=== PATIENT | female | born 2000 | race African-American/Black ===

== ENCOUNTER 2023-07-30 15:36 | Outpatient (CLI) | payer OTHER, SELFPAY ==
--- NOTE | ~2023-07-30 | US_ITS ---
EXAMINATION: US OB follow up DATE: 07/30/2023 16:41 INDICATION: Age-indeterminate with amenorrhea and unknown last menstrual period presenting with irregular vaginal bleeding. TECHNIQUE: Real-time ultrasound of the pelvis was performed. The interpreting radiologist was not pre sent for the study. COMPARISON: None. FINDINGS: There is a single living fetus in the cerebral presentation. The placenta is anterior and low-lying with caudal margin 2.5 cm from the region of the internal cervical os which is not clearly visualized . There is a hypoechoic region lung the deep margin of the caudal placenta which extends to the level of the internal cervical os which is suspicious for subchorionic hematoma which measures 6.2 x 2.0 x 4.2 cm. On a few of the images the region of hypoechogenicity extends deeper towards the expected re gion of the cervix which is not clearly visualized which could potentially represent either extension of clot into the endocervical canal, tangential imaging of a more lateral extension of the subchorio gretel hematoma lateral to the midline or shadowing from fraction artifact. heart rate is 147 beat s per minute (bpm). The amniotic fluid volume is subjectively normal with normal deepest vertical poc ket measurement of 4.1 cm. The following biometric data were obtained: BPD: 4.0 cm -> 18 weeks 2 days Head circumference: 14.6 cm -> 17 weeks 6 days Abdominal circumference: 11.8 cm -> 17 weeks 4 days Femur length: 2.3 cm -> 16 weeks 6 days These measurements are concordant. Head circumference to abdominal circumference ratio: 1.24 (normal range 1.08-1.28). Although not performed as a dedicated anatomic survey, additional provided images demonstrates male genitalia, normal bladder with 3 vessel cord, normal nasal bone, upper lip and cord insertion. Estimated weight: 189 g (+/-) 28 g or 7 oz. (+/-) 1 oz. IMPRESSION: 1. Single living fetus in vertex presentation with heart rate of 147 bpm. 2. Gestational age by ultrasound of 17 weeks 5 day(s) +/- 1 week(s) 2 day(s) with ultrasound estimate d date of delivery (ALTAGRACIA) of 01/02/2024. Please correlate with clinical information or earlier ultraso unds for most accurate ALTAGRACIA. 3. 6.2 x 2.0 x 4.2 cm subchorionic hematoma along the caudal margin of the low-lying placenta which a ppears to extend to the region of the internal cervical os, potentially with extension into the endoc ervical canal however visualization of the region of the cervix is suboptimal on the provided images. Dr. Gonzales discussed these findings with Dr. Connolly at 9:00 AM. Reviewed, dictated and finalized at location A. IMPRESSION: 1. Single living fetus in vertex presentation with heart rate of 147 bpm. 2. Gestational age by ultrasound of 17 weeks 5 day(s) +/- 1 week(s) 2 day(s) wi th ultrasound estimated date of delivery (ALTAGRACIA) of 01/02/2024. Please correlate with clinical information or earlier ultrasounds for most accurate ALTAGRACIA. 3. 6.2 x 2.0 x 4.2 cm subchorionic hematoma along the caudal margin of the low- lying placenta which appears to extend to the region of the internal cervical o s, potentially with extension into the endocervical canal however visualization of the region of the cervix is suboptimal on the provided images. Dr. Gonzales discussed these findings with Dr. Connolly at 9:00 AM.
== END 2023-07-30 15:37 | disposition home or self-care (01) ==
LOC: ANHIMG 15:37
PROVIDERS: PCP Student in an Organized Health Care Education/Training Program; Visit Provider Student in an Organized Health Care Education/Training Program
DX: Z34.92 Encounter for supervision of normal pregnancy, unspecified, second trimester (principal); Z3A.17 17 weeks gestation of pregnancy
CPT/HCPCS: 76816

== ENCOUNTER 2023-08-15 12:41 | Outpatient (CLI) | payer OTHER, SELFPAY ==
--- NOTE | ~2023-08-15 | US_ITS ---
OB follow-up ULTRASOUND 08/15/2023 13:00 CDT Ordering provider: Onofre Connolly MD History: . subchorionic hematoma . Comparison: July 30, 2023 Technique: OB follow-up ULTRASOUND (Doppler ultrasound interrogation techniques used as needed for this exam.) Findings: : Single intrauterine fetus with heart rate measured at 19 2006 ( bpm which is within normal limits. ED D is January 03, 2024 Presentation: Vertex. Longitudinal lie. Placenta: Anterior. No previa. Previously seen subchorionic hemorrhage is decreased. Amniotic fluid index: 11.1 cm 5th percentile 9.3 cm. 95th percentile areas 21.2 cm.The largest pocket measures 3 cm. -- BIOMETRICS: BPD: 48.1 mm = 20 weeks 4 days HC: 171.1 mm = 19 weeks 5 days FL: 29.9 mm = 19 weeks 2 days AC: 144.4 mm = 19 weeks 5 days HC/AC: 1.18 FL/BPD: 62.16 FL/AC: 20.7-1 Extrapolated weight is 300.14 gm. 23.2%. IMPRESSION: No definite abnormality seen. The previously seen subchorionic hematoma is decreased. Reviewed, dictated and finalized at location A. IMPRESSION: No definite abnormality seen. The previously seen subchorionic hematoma is dec reased.
[2023-08-15 14:16] LABS: Basophils Percent Auto 0.3 % (0.2-1.2); Eosinophils Absolute Auto 0.2 K/mm3 (0-0.3); Eosinophils Percent Auto 1.6 % (0-4.4); Hematocrit 37.2 % (37.0-47.0); Hemoglobin 12.4 g/dL (12.0-15.0); Immature Granulocyte Absolute 0.02 K/mm3 (0.00-0.031); Immature Granulocyte Percent A 0.2 % (0-0.5); Immature Platelet Fraction Pct 14.6 % (0.9-11.2); Lymphocytes Absolute Auto 2.02 K/mm3 (0.9-3.2); Lymphocytes Percent Auto 19.4 % (18.3-44.2); Mean Corpuscular HGB Conc 33.3 g/dl (32-36); Mean Corpuscular Hemoglobin 29.4 pg (26-34); Mean Corpuscular Volume 88.2 fl (80-100); Mean Platelet Volume 13.2 fl (7.4-10.4); Monocytes Absolute Auto 0.7 K/mm3 (0.1-0.6); Monocytes Percent Auto 6.4 % (2.6-8.5); Neutrophils Absolute Auto 7.5 K/mm3 (1.3-6.7); Neutrophils Percent Auto 72.1 % (45.5-73.1); Platelet Count Result 121 k/mm3 (150-375); Red Blood Count 4.22 M/mm3 (4.2-5.4); Red Cell Distribution Width 13.9 % (11.5-14.5); White Blood Count 10.4 K/mm3 (4.5-10.0)
[2023-08-15 15:15] LABS: HIV 1/2 Ab P24 Ag Result Negative (Negative)
[2023-08-15 15:39] LABS: Hepatitis B Surface Antigen Negative (Negative)
[2023-08-15 18:44] LABS: Rubella IgG Antibody > 110.0 IU/ML
== END 2023-08-15 12:42 | disposition home or self-care (01) ==
PROVIDERS: PCP Student in an Organized Health Care Education/Training Program; Visit Provider Student in an Organized Health Care Education/Training Program
DX: N91.2 Amenorrhea, unspecified (principal); O41.8X90 Other specified disorders of amniotic fluid and membranes, unspecified trimester, not applicable or unspecified; O46.8X9 Other antepartum hemorrhage, unspecified trimester; Z3A.00 Weeks of gestation of pregnancy not specified
CPT/HCPCS: 36415; 76816; 84702; 85025; 85055; 85660; 86644; 86703; 86747; 86762; 86787; 86850; 87340; G0432

== ENCOUNTER 2023-10-10 14:34 | Observation (INO) | payer OTHER, SELFPAY ==
--- NOTE | 2023-10-10 14:45 | OBADM ---
This patient, Leslie Ricks, admitted to the OB room OB Post 116 for observation. Patient/family oriented to hospital policies and general routines including ID bracelet, bed and alarms, visiting hours, pain management, procedures, bathroom and other care routines, personal items, smoking policy, room service/diet, and visiting hours. Patient/Family are encouraged to report perceived risks to care and to ask questions if they do not understand what they are told or what they should do.
[2023-10-10 15:00] VITALS: BP 120/69; PULSE 95
[2023-10-10 15:15] VITALS: BP 111/70; PULSE 84
[2023-10-10 15:30] VITALS: BP 113/70; PULSE 89
--- NOTE | 2023-10-10 15:32 | PC.NURSE ---
Dr Livingston notified of adm c/o of spotting after intercourse yesterday, orders for SVE and if closed my dc home.
--- NOTE | 2023-11-06 12:52 | PM.OBTRLD ---
OB - Triage/Final Diagnosis Visit Information Comments/Additional reasons for admission: I have assessed the risk for this patient, Leslie Ricks, and determined that she would benefit from observation care. Final Diagnosis (1) Spotting complicating , third trimester: Code(s): O26.853 - Spotting complicating , third trimester Status: Acute
== END 2023-10-10 15:41 | disposition home or self-care (01) ==
PROVIDERS: Admitting Provider Obstetrics & Gynecology; Visit Provider Obstetrics & Gynecology
DX: O26.852 Spotting complicating pregnancy, second trimester (principal); Z3A.27 27 weeks gestation of pregnancy
CPT/HCPCS: G0378; G0379

== ENCOUNTER 2023-10-31 15:11 | Outpatient (CLI) | payer OTHER, SELFPAY ==
[2023-10-31 16:43] LABS: Basophils Percent Auto 0.3 % (0.2-1.2); Eosinophils Absolute Auto 0.2 K/mm3 (0-0.3); Eosinophils Percent Auto 1.8 % (0-4.4); Hematocrit 34.9 % (37.0-47.0); Hemoglobin 11.9 g/dL (12.0-15.0); Immature Granulocyte Absolute 0.04 K/mm3 (0.00-0.031); Immature Granulocyte Percent A 0.3 % (0-0.5); Immature Platelet Fraction Pct 17.6 % (0.9-11.2); Lymphocytes Absolute Auto 2.06 K/mm3 (0.9-3.2); Lymphocytes Percent Auto 17.7 % (18.3-44.2); Mean Corpuscular HGB Conc 34.1 g/dl (32-36); Mean Corpuscular Hemoglobin 29.5 pg (26-34); Mean Corpuscular Volume 86.6 fl (80-100); Mean Platelet Volume 13.6 fl (7.4-10.4); Monocytes Absolute Auto 0.7 K/mm3 (0.1-0.6); Monocytes Percent Auto 5.7 % (2.6-8.5); Neutrophils Absolute Auto 8.6 K/mm3 (1.3-6.7); Neutrophils Percent Auto 74.2 % (45.5-73.1); Platelet Count Result 115 k/mm3 (150-375); Red Blood Count 4.03 M/mm3 (4.2-5.4); Red Cell Distribution Width 13.1 % (11.5-14.5); White Blood Count 11.6 K/mm3 (4.5-10.0)
[2023-10-31 16:50] LABS: Glucose 1 Hour PP 50gm Dose 138 mg/dL
[2023-10-31 16:59] LABS: Rapid Plasma Reagin Non-Reactive (NonReactive)
[2023-10-31 17:31] LABS: HIV 1/2 Ab P24 Ag Result Negative (Negative)
== END 2023-10-31 15:12 | disposition home or self-care (01) ==
PROVIDERS: Visit Provider Obstetrics & Gynecology
DX: Z34.90 Encounter for supervision of normal pregnancy, unspecified, unspecified trimester (principal); Z3A.00 Weeks of gestation of pregnancy not specified
CPT/HCPCS: 36415; 82947; 85025; 85055; 86592; 86703; G0432

== ENCOUNTER 2023-11-06 16:16 | Outpatient (RCR) | payer OTHER, SELFPAY ==
--- NOTE | ~2023-11-06 | US_ITS ---
EXAMINATION: US OB BPP wo non-stress DATE: 11/06/2023 17:35 INDICATION: Intrauterine growth retardation during third trimester . TECHNIQUE: Real-time pelvic ultrasound was performed. The interpreting radiologist was not present fo r the study. COMPARISON: 10/29/23 FINDINGS: There is a single living fetus in vertex presentation. The placenta is anterior. heart rate is 132 beats per minute (bpm). Amniotic fluid volume is subjectively normal with normal deepest vertica l pocket measurement of 5.3 cm. Biophysical profile performed by the technologist: breathing (30 sec sustained breathing in 30 minutes): 2 out of 2 movement (3 gross body movements in 30 minutes): 2 out of 2 tone (one episode of muqfbbm-dxawekscy-kjhnnjk limb movement): 2 out of 2 Amniotic fluid pocket (2 cm): 2 out of 2 Total score: 8 out of 8 IMPRESSION: 1. Single living fetus in vertex presentation with heart rate of 132 bpm. 2. Biophysical profile 8 out of 8. Reviewed, dictated and finalized at location B.
[2023-11-06 17:49] VITALS: BP 118/85; PULSE 92
== END 2024-02-04 23:59 | disposition home or self-care (01) ==
LOC: ANHOBOP 16:16
PROVIDERS: Visit Provider Obstetrics & Gynecology
DX: O36.5930 Maternal care for other known or suspected poor fetal growth, third trimester, not applicable or unspecified (principal); Z3A.31 31 weeks gestation of pregnancy
CPT/HCPCS: 59025; 76819

== ENCOUNTER 2023-11-12 22:43 | Observation (INO) | payer OTHER, SELFPAY ==
[2023-11-12 23:30] VITALS: BP 135/93; PULSE 81
[2023-11-12 23:36] LABS: Add Urine Microscopic? NO; Appearance Urine Clear (Clear); Bilirubin Urine Negative (Negative); Blood Urine Negative (Negative); Color Urine Yellow (Yellow); Glucose Urine UA Negative (Negative); Ketones Urine Negative (Negative); Leukocyte Esterase Ur Negative LEU/UL (Negative); Nitrate Urine Negative (Negative); Protein Urine Negative (Negative); Specific Grav Ur 1.015 (1.001-1.035)
[2023-11-12 23:45] VITALS: BP 128/93; PULSE 66
[2023-11-13] VITALS: BP 126/94; PULSE 71
[2023-11-13 00:05] VITALS: BMI 24.0
--- NOTE | 2023-11-13 00:05 | OBADM ---
This patient, Leslie Ricks, admitted to the OB room OB Post 117 for observation. Patient/family oriented to hospital policies and general routines including ID bracelet, bed and alarms, visiting hours, pain management, procedures, bathroom and other care routines, personal items, smoking policy, room service/diet, and visiting hours. Patient/Family are encouraged to report perceived risks to care and to ask questions if they do not understand what they are told or what they should do.
--- NOTE | 2023-11-13 00:13 | PC.NURSE ---
Talked to Dr. Connolly at this time. Reported patient kim and only drinking one bottle of water today. Patient has had 2 cups of water today since she was here and is not feeling anything anymore. Reported on maternal and status at this time. orders recieved to DC the patient at this time.
--- NOTE | 2023-11-13 00:15 | PC.NURSE ---
patient came in tonight via EMS from [place] in [facility]. Patient c/o cramping and tightening of her belly. Patient states that she has only had one bottle of water tonight and has been feeling baby move like crazy. Patient states no vaginal bleeding or leaking of fluid.
--- NOTE | 2023-11-17 08:56 | P.PNOB_ITS ---
OB - Triage/Final Diagnosis Visit Information Date of evaluation: 11/13/23 Reason for evaluation: threatened labor Comments/Additional reasons for admission: I have assessed the risk for this patient, Leslie Ricks, and determined that she would benefit from observation care. Evaluation Laboratory results: Laboratory Tests 11/12/23 23:31 Urine Color Yellow Urine Appearance Clear Urine pH 7.0 Ur Specific [place] 1.015 Urine Protein Negative Urine Glucose (UA) Negative Urine Ketones Negative Ur Blood (Man) Negative Urine Nitrate Negative Urine Bilirubin Negative Urine Urobilinogen 1.0 Leukocyte Esterase Rfl Negative
== END 2023-11-13 01:41 | disposition home or self-care (01) ==
PROVIDERS: Obstetrics & Gynecology; Admitting Provider Student in an Organized Health Care Education/Training Program; Visit Provider Student in an Organized Health Care Education/Training Program
DX: O47.9 False labor, unspecified (principal); Z3A.00 Weeks of gestation of pregnancy not specified
CPT/HCPCS: 59025; 81003; G0378; G0379

== ENCOUNTER 2024-02-20 15:02 | Emergency (ER) | payer OTHER, SELFPAY ==
--- NOTE | 2024-02-20 15:12 | PC.NURSE ---
Pt. called for triage at 1512. No reply.
== END 2024-02-20 17:11 | disposition left against medical advice (07) ==
DX: Z53.21 Procedure and treatment not carried out due to patient leaving prior to being seen by health care provider (principal)
CPT/HCPCS: 99199

== ENCOUNTER 2024-07-06 11:18 | Outpatient (CLI) | payer OTHER, SELFPAY ==
--- OUTSIDE RECORDS SUMMARY | 2024-07-06 11:22 | XMS_ITS | Referral Summary ---
Author Organization [facility] Address [address] [place] [address] Care Team Providers Care Vending Attendant Name Role Phone No, Physician Primary Care Provider [phone] Unknown, Notinfile Unavailable Unavailable Allergies Active Allergy Reactions Criticality Noted Date Comments Egg Unknown 11/27/2023 Eggshell Membrane Swelling Medium 07/15/2023 Other Hives Medium 07/15/2023 Peaches [place] Flavor Itching,Urticaria Medium 10/06/2021 Medications ferrous sulfate (IRON ORAL) Take by mouth Active PNV no.95/ferrous fum/folic ac ( ORAL) Take by mouth Active acetaminophen 500 mg capsuleIndications: Pain Take 2 capsules (1,000 mg total) by mouth every 6 (six) hours 30 tablet 4 Active ibuprofen (ADVIL,MOTRIN) 600 mg tabletIndications:P ain Take 1 tablet (600 mg total) by mouth every 6 (six) hours 60 tablet 4 Active NIFEdipine (PROCARDIA XL/ADALAT CC) 30 mg 24 hr tablet Take 1 tablet (30 mg total) by mouth daily 30 tablet 11 4 12/15/19 25 Active ondansetron ODT (ZOFRAN-ODT) 4 mg disintegrating tabletIndications:N ausea and Vomiting Take 1 tablet (4 mg total) by mouth every 6 (six) hours as needed for nausea or vomiting 20 tablet 4 Active polyethylene glycol (MIRALAX) 17 gram/dose bulk powderIndications:c onstipation Take 17 g by mouth daily 510 g 4 Active Active Problems Problem Noted Date Diagnosed Date care following vaginal delivery 12/12 Overview (12/15/2023): # ID: Afebrile. No signs/symptoms of infection. #H/o CT: CT pos on 3T labs.S/p tx 11/27. For BILLY ~12/25 # Heme: QBL 50 mL. Hemodynamically stable. #gTCP: platelet 108 pre-delivery # CV/Pulm: #Pre-eclampsia with severe features - s/p magnesium sulfate running 2g/hr for a total of 24 hours . On nifed 30mg XL (started 12/12 PM). Some mild ranges 12/14 AM, will monitor this afternoon to see if pt needs to increase nifed upon discharge. CBC/CMP WNL, UPC 0.2. Consented/ordered for home BP monitoring, for enrollment. # GI/: Tolerating PO. Voiding spontaneously. # Pain: Controlled with above regimen. # MOC: Declines s/p counseling. Readdressed 12/14, still declining. # MOF: . Urine drug screen not indicated. Patient informed of results: N/A. # Post DVT prophylaxis: The patient has the following MAJOR risk factors none and the following MINOR risk factors none. SCDs ordered for VTE prophylaxis. # Disposition: Follow up task sent to [facility] scheduling pool. Continue routine care. Encounter for induction of labor 12/12/2023 Overview (12/12/2023): Leslie Ricks is a 23 y.o. female at 37w0d who is dated by 2 trimester ultrasound and is being admitted for an induction of labor secondary to gHTN . Admit to L&D: Labs: CBC and T&S pending. Induction of labor with Misoprostol . FWB: Continuous monitoring. Reactive NST. ID: 3rd trimester HIV (>28 wga) negative on 11/26. GBS negative on 11/26 . RPR on admission: pending. History of genital HSV or HSV 1/2 seropositivity: No. Membrane Status: intact. Indications for UDS: none. Verbal consent obtained for UDS: Not indicated. MOF: Plans to breastfeed. Urine drug screen not indicated. Patient informed of results: N/A. MOC: Decline s/p counseling, plans for condom use . Pain management: Desires epidural. Post DVT prophylaxis: The patient has the following MAJOR risk factors none and the following MINOR risk factors none. SCDs will be ordered for VTE prophylaxis . c/b: #FGR: elevated UAD, declined amnio, genetic testing. Notify peds for delivery. #gHTN: baseline CBC/CMP WNL, UPC 0.294 on 12/03. For repeat labs on admission, ordered. #H/o CT: CT pos/GC neg on 3T labs, treatment sent 11/27. For BILLY ~12/25 #gTCP: Plt 108 on 12/03 (>200 in 2020), will f/u admission CBC #Abnormal pap: ASCUS/hrHPV(+) 03/2023, for repeat in 03/2024 #LPNC ASCUS with positive high risk HPV cervical 11/17 Overview (11/26/2023): Pap: 04/16/23: ASCUS; HPV positive Repeat per in one year per ASCCP guidelines Resolved Problems Problem Noted Date Diagnosed Date Resolved Date Gestational hypertension, third trimester 12/04/2023 12/29/2023 Overview (12/05/2023): Gestational hypertension S/p counseling Plan: Weekly appts with weekly labs 2x/weekly testing per FGR problem Delivery at 37 per FGR elevated 1 hour 11/26/2023 12/29/2023 Overview (11/27/2023): 1 hour gtt 10/31/23: 138, elevated per OSH cut offs Discussed that this is not elevated per cut offs we use at [facility], no need for 3 hour Supervision of high-risk pre gnancy, third trimester 11/18/2023 12/29/2023 Overview (12/03/2023): [x] Full M Care; [x] Blue Team Referring Provider: Self Referral Primary OB: Dorie Sarabia [phone] [] or Medicare Insurance [x] Dating Criteria: US 07/30/23 with ALTAGRACIA 01/02/24 [x] Labs: Rh [B+], Ab [negative], Rubella [immune], HIV [non-reactive], HepBSAg [non-reactive], RPR [not done, ordered], Hep C [Neg/Neg], Varicella [positive], GC/CT [declined] [x] Aneuploidy: declined NIPT [x] Carrier Screening: sickle cell negative [x] CBC/Hgb: 12.4/37.2/plt 121 [] UCx: not done, ordered [x] Pap: 04/16/23: ASCUS; HPV positive [] Flu Shot (Oct-Jan): declined [] COVID : declined 2nd Tri Labs: [x] Anatomy ultrasound: complete and wnl 09/23 [x] CBC/1hr gtt at 24-28wks: 10/31/23: 11.9/34.9/plt 115, GTT 138, HIV [non- reactive], RPR [non-reactive] [x] Tdap (27-36wks): 11/27/23 AM [] Rhogam at 28 wks (if Rh neg): 3rd Tri Labs: [x] CBC/HIV/RPR/T&S: 10.5/32.8/120, HIV: Neg, RPR: NR [x] GBS: collected 11/26, negative [x] GC/CT (if indicated): GC: neg, CT positive and treatment sent on 11/28/23- jlb [x] testing: Twice weekly, ordered [x] RSV , declined Counseling [x] MOD: Antipate , IOL scheduled for 12/11 at 5:30am-letter sent to pt [x] Place of delivery: [facility] [] Last clinic visit SVE: [] IOL start agent: [] Epidural: [] Blood Products [] Consents signed: [] Stop ASA [] MOC: [] Method of feeding: [] Emery Wheel Molder: [] PP Depression Discussed: Late care affecting in third trimester 11/18/2023 12/29/2023 growth restriction antepartum 11/18/2023 12/29/2023 Overview (12/03/2023): Diagnosed at 30w4d by AC 5%ile, EFW 38% 11/27/23: EFW 4%ile, AC 6%ile, elevated UAD, BPP 09/24 Previously counseled Plan: [x] Offered amniocentesis for MANAGER FARM (and CMV if gestational age <32 weeks at diagnosis) offered, + CMV IgG on NOB labs, declined amnio [x] Twice weekly testing with UA dopplers/BPP alternating with NST (usually Friday/ or Friday/Friday schedule), ordered [] Growth EFW every 3 weeks with MFM visit, none left prior to delivery [] Plan for delivery at 37 weeks or if testing dictates sooner, scheduled for IOL 12/11 Thrombocytopenia affecting 11/18/2023 12/29/2023 Overview (12/03/2023): Last platelets: 115 10/31/23 Lab Results Component Value Date WBC 10.3 (H) 11/27/2023 HGB 10.5 (L) 11/27/2023 HCT 32.8 (L) 11/27/2023 MCV 85.0 11/27/2023 LABPLAT 120 (L) 11/27/2023 Immunizations Immunization Administration Dates Next Due Tdap 11/27/2023 Social History Tobacco Use Types Packs/Day Years Used Date Smoking Tobacco: Never Passive Smoke Exposure: Current Smokeless Tobacco: Never Tobacco Cessation:Counseling Given: No Personal Safety Answer Date Recorded Have you ever been in or are you currently in a harmful physical or emotional relationship or is someone making you feel afraid or unsafe? 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 Gender Identity Not on file Sexual Orientation Not on file Last Filed Vital Signs Vital Sign Reading Time Taken Comments Blood Pressure 134/81 12/15/2023 11:13 AM CDT Pulse 87 12/15/2023 7:17 AM CDT Temperature 36.8 C (98.2 F) 12/15/2023 7:17 AM CDT Respiratory Rate 18 12/15/2023 7:17 AM CDT Oxygen Saturation 97% 12/15/2023 7:17 AM CDT Inhaled Oxygen Concentration - - Weight 57.2 kg (126 lb) 12/12/2023 7:34 AM CDT Height 152.4 cm (5') 12/12/2023 7:34 AM CDT Body Mass Index 24.61 12/12/2023 7:34 AM CDT Plan of Treatment Not on file Procedures Procedure Name Priority Date/Time Associated Diagnosis Comments HEPATITIS C ANTIBODY Routine 11/27/2023 3:55 PM CDT Supervision of high-risk , unspecified trimester from Last 3 Months or Most Recently Relevant to Health Maintenance Results * Hepatitis C antibody Blood (11/27/2023 3:55 PM CDT) Hep C Ab Nonreactive Nonreactive Comment:Antibodies to HCV no t detected. Does NOT exclude the possibility of recent exposure to HCV. Current interpretive data was last revised on 21 Blood 11/27/2023 3:55 PM CDT 11/27/2023 5:13 PM CDT us Juany Andrews MD LAB MICROBIOLOGY - GENERAL ORDERABLES Final Result [facility] [address] Department of Laboratories [place], [place] [id number] from Last 3 Months or Most Recently Relevant to Health Maintenance Insurance [facility] [employer] [facility] Advance Directives For more information, please contact: [phone] * Full Code (Latest Code Status on File) Date Activated Date Inactivated Comments 12/13/2023 6:27 AM 12/15/2023 5:21 PM * Full Code Date Activated Date Inactivated Comments 12/12/2023 6:45 AM 12/13/2023 6:27 AM Full CPR in case of cardiopulmonary arrest Care Teams Vending Attendant Relationship Specialty Start Date End Date No, Physician PCP - General 11/12/23 Unknown, Notinfile 11/12/23
--- OUTSIDE RECORDS SUMMARY | 2024-07-06 11:22 | XMS_ITS | Clinical Summary ---
Author Organization [facility] Address [address] [place] [address] Care Team Providers Care Correspondence Specialist Name Role Phone No, Physician Primary Care Provider [phone] Unknown, Notinfile Unavailable Unavailable Allergies Active Allergy Reactions Criticality Noted Date Comments Egg Unknown 11/27/2023 Eggshell Membrane Swelling Medium 07/15/2023 Other Hives Medium 07/15/2023 Peaches [place] Flavor Itching,Urticaria Medium 10/06/2021 Medications ferrous sulfate [...] # Disposition: Follow up task sent to [facility] scheduling pool. Continue routine care. Encounter for [...] elevated per cut offs we use at [facility], no need for 3 hour Supervision of high-risk pre gnancy, third trimester 11/18/2023 12/29/2023 Overview (12/03/2023): [x] Full M Care; [x] Blue Team Referring Provider: Self Referral Primary OB: Dorie Sarabia [phone] [] or Medicare Insurance [x] Dating Criteria: [...] [] MOC: [] Method of feeding: [] Fish Bait Processing Supervisor: [] PP Depression Discussed: Late care affecting in third trimester 11/18/2023 12/29/2023 growth restriction antepartum 11/18/2023 12/29/2023 Overview (12/03/2023): Diagnosed at 30w4d by AC 5%ile, EFW 38% 11/27/23: EFW 4%ile, AC 6%ile, elevated UAD, BPP 09/24 Previously counseled Plan: [x] Offered amniocentesis for JUNIOR ANALYST (and CMV if gestational age <32 weeks [...] on file 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 Gender Identity Not on file Sexual Orientation Not on file Obstetrics History Para Term AB IAB SAB Ectopic Multiple Livin g Live Births 2 1 1 0 1 0 1 0 0 1 1 Date Outcome GA Total Labor Labor/2nd/3rd Weight Sex Type Anes PTL Elvia A1 A5 Name Clin SAB 2023 Term 37w 1d 0h 32m 0h 25m/0h 07m 2.18 kg (4 lb 12.9 oz) M Vagina l Epidur al N Livin g 7 9 Damion n Dilan Christian rsad, Carmen Reagan MD Complications: Sally karolina Hypertension,Pre eclampsia Delivery Location:[facility] ([facility]) Last Filed Vital Signs Vital Sign Reading [...] 12/12/2023 7:34 AM CDT Plan of Treatment Health Maintenance Due Date Last Done Comments Cervical Cancer Screening 2002 Depression Screening 2002 Meningococcal B Vaccine (2 of 2 - Bexsero SCDM 2-dose series) 12/11/2018 06/11/2018 Regular Well Visit/Exam 18-64 2020 Influenza Vaccine (#1) 2023 01/08/2017, 2015 DTaP/Tdap/Td Vaccine (7 - Td or Tdap) 11/26/2033 11/27/2023, 07/05/2014, 11/09/2007, Additional history exists Pneumococcal vaccine <65 Aged Out 004, 09/16/2003, 2002 No longer eligible based on patient's age to complete this topic Varicella Vaccines Completed 11/09/2007, 11/04/2003 Hepatitis B Screening Completed 04/27/2014 , 09/16/2003, 2002 HPV Vaccines Completed 03/20/2016, 06/09/2014 Hepatitis C Screening Completed 11/27/2023 Procedures Procedure Name Priority Date/Time Associated Diagnosis [...] LAB MICROBIOLOGY - GENERAL ORDERABLES Final Result [facility] Department [place] [address] from Last 3 Months or Most Recently Relevant to Health Maintenance Insurance [facility] Advance Directives For more information, please contact: [phone] * Full Code (Latest Code Status on File) Date Activated Date Inactivated Comments 12/13/2023 6:27 AM 12/15/2023 5:21 PM * Full Code Date Activated Date Inactivated Comments 12/12/2023 6:45 AM 12/13/2023 6:27 AM Full CPR i n case of cardiopulmonary arrest Care Teams Correspondence Specialist Relationship Specialty Start Date End Date No, Physician PCP - General 11/12/23 Unknown, Notinfile 11/12/23
--- OUTSIDE RECORDS SUMMARY | 2024-07-06 11:22 | XMS_ITS | Clinical Summary ---
Author Organization [facility] Address [address] [place] [address] Care Team Providers Care Credit Card Clerk Name Role Phone Unavailable Primary Care Provider Unavailabl e Source Comments [facility]non-owned Affiliates and Associated Physician Practices is amultiple site organization consisting of ambulatory clinics and hospital sitesin [place], [place], [place] and [place]. This disclosure is being madepursuant to the Care Everywhere program and may not contain all information available regarding this patient. Last updated 17.[facility] Allergies Active Allergy Reactions Criticality Noted Date Comments Charles Flavor Urticaria,Itching Medium 10/06/2021 Medications * Be aware that medications may not be up to date on this document. Alwaysverify current medications with the patient. Loperamide HCl (IMODIUM A-D PO) Take by mouth. Active ibuprofen (MOTRIN) 400 MG tablet Take 1 (one) tablet by mouth every 6 hours as needed for Pain 30 tablet 02/27/2021 Active Social History Tobacco Use Types Packs/Day Years Used Date Smoking Tobacco: Never Smokeless Tobacco: Never Alcohol Use Standard Drinks/Week Comments Never 0 (1 standard drink = 0.6 oz pur e alcohol) AUDIT-C Answer Date Recorded Q1: How often do you have a drink containing alcohol? Never 10/05/2021 Q2: How many drinks containi ng alcohol do you have on a typical day when you are drinking? Patient does not drink Q3: How often do you have si x or more drinks on one occasion? 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 Height - - Body Mass Index - - Plan of Treatment Health Maintenance Due Date Last Done Comments PAP SMEAR 2002 HIV SCREENING 2017 HPV VACCINE (1 - 3-dose series) 2017 CHLAMYDIA/GONORRHEA SCREENING 2018 MENINGOCOCCAL (Group B) VACCINE SHARED DECISION-MAKING (1 of 2 - Standard) 2018 HEPATITIS C SCREENING 03/29/2020 DTAP/TDAP/TD VACCINES (1 - Tdap) 2021 HEPATITIS B VACCINE (1 of 3 - 19+ 3-dose series) 2021 COVID-19 VACCINE (1 - 2023-2 5 season) 2023 DEPRESSION SCREENING 02/18/2024 INFLUENZA VACCINE (Season Ended) 2024 01/08/2017, 02/07/2016 ZOSTER VACCINE (1 of 2) 2052 HIB VACCINE Aged Out No longer eligi ble based on patient's age to complete this topic MENINGOCOCCAL GROUPS A/C/Y/W VACCINE Aged Out No longer eligible b ased on patient's age to complete this topic PNEUMOCOCCAL VACCINE Aged Out No long er eligible based on patient's age to complete this topic Insurance MEDICAID [employer] [facility] [id number]
--- OUTSIDE RECORDS SUMMARY | 2024-07-06 11:22 | XMS_ITS | Clinical Summary ---
Author Organization [facility] Address [address] [place] [id number] Care Team Providers Care Admitted Attorneys Name Role Phone Md, Generic Conversion MD Unavailable Unavai lable None, Provider MD Primary Care Provider Unavaila ble Allergies No known active allergies Social History Tobacco Use Types Packs/Day Years Used Date Smoking Tobacco: Former Cigarettes Smokeless Tobacco: Never Alcohol Use Standard Drinks/Week Comments Never 0 (1 standard drink = 0.6 oz pur e alcohol) AUDIT-C Answer Date Recorded Q1: How often do you have a drink containing alc ohol? Never 04/11/2020 Average Number of Drinks Not on file 021 Frequency of Binge Drinking Not on file 03/21 Comments No Sex and Gender Information Value Date Recorded Sex Assigned at Not on file Legal Sex Female 2:41 PM CDT Gender Identity Not on file Sexual Orientation Not on file Last Filed Vital Signs Vital Sign Reading Time Taken Comments Blood Pressure 126/78 07/30/2020 2:46 PM CDT Pulse 82 07/30/2020 2:46 PM CDT Temperature 36.7 C (98.1 F) 07/30/2020 2:51 PM CDT Respiratory Rate 16 07/30/2020 2:46 PM CDT Oxygen Saturation 100% 07/30/2020 2:46 PM CDT Inhaled Oxygen Concentration - - Weight 46 kg (101 lb 6.6 oz) 07/30/2020 2:46 PM CDT Height 152.4 cm (5') 07/30/2020 2:46 PM CDT Body Mass Index 19.81 07/30/2020 2:46 PM CDT Plan of Treatment Health Maintenance Due Date Last Done Comments Cervical Cancer Screening Pa p Smear (Age 21 to 29) Every 3 Years 2002 Cervical Cancer Screening 2002 Annual Physical 2005 Meningococcal B Vaccine (2 o f 2 - Bexsero SCDM 2-dose series) 12/11/2018 06/11/2018 Hepatitis C 2020 DTaP, Tdap and Td Vaccines ( 1 - Tdap) 2021 Hepatitis B Vaccines (1 of 3 - 19+ 3-dose series) 2021 COVID-19 Vaccine (1 - 2023-2 5 season) 2023 HPV Vaccines Completed 03/20/2016, 06/09/2014 Meningococcal Vaccine Completed 06/11/2018 , 07/05/2014 Pneumococcal Vaccine: Pediatrics (0 to 5 Years) and At-Risk Patients (6 to 49 Years) Aged Out No longer eligible b ased on patient's age to complete this topic RSV Immunizations Under 20 Months Aged Out No longer eligible b ased on patient's age to complete this topic Insurance [facility] MEDICAID MEDICAID Care Teams Admitted Attorneys Relationship Specialty Start Date End Date None, Provider, PCP - General 07/30/20 , Generic [facility] 04/11/20
[2024-07-06 12:11] LABS: Beta HCG Quantitative < 2.39 mIU/ML
== END 2024-07-06 11:19 | disposition home or self-care (01) ==
LOC: ANHLAB 11:19
PROVIDERS: Visit Provider Student in an Organized Health Care Education/Training Program
DX: N92.6 Irregular menstruation, unspecified (principal)
CPT/HCPCS: 36415; 84702